=== PATIENT | male | born 2000 | race Caucasian/White ===

== ENCOUNTER → 2021-10-12 | Outpatient (CLI) | payer OTHER ==
[~2021-10-12] MED LIST: ISOVUE-300 61% 50ML VIAL As Ordered ONE; LIDOCAINE 1% MDV 20ML VIAL As Ordered ONE; TRIAMCINOLONE ACETONIDE SUSP 40 MG/ML VIAL (J3301) As Ordered ONE
== END ==
LOC: M RADPRO 11:15
PROVIDERS: ATTEND Orthopaedic Surgery
DX: S73.101A Unspecified sprain of right hip, initial encounter (principal)
CPT/HCPCS: 20610; 76000; J3301; Q9967